=== PATIENT | female | born 1935 | race Caucasian/White ===

== ENCOUNTER 2018-04-09 12:19 | Outpatient (CLI) | payer MEDICARE, BC | END 2018-04-09 12:20 | disposition EMS.NT | LOC: EMS 12:19 | PROVIDERS: ATTEND Surgery | DX: R53.1 Weakness (principal); R42 Dizziness and giddiness ==

== ENCOUNTER 2018-09-28 14:31 | Outpatient (CLI) | payer MEDICARE, OTHER ==
[2018-09-28 15:10] LABS: BILIRUBIN,URINE NEGATIVE (NEGATIVE); GLUCOSE, URINE (UA) NEGATIVE (NEGATIVE); KETONES,URINE (UA) NEGATIVE (NEGATIVE); LEUKOCYTE ESTERASE, URINE LARGE (NEGATIVE); NITRITE,URINE POSITIVE (NEGATIVE); OCCULT BLOOD,URINE SMALL (NEGATIVE); PROTEIN,URINE 30 mg/dL (NEGATIVE); UROBILINOGEN,URINE 0.2 (NORMAL) E.U./dL (NORMAL)
[2018-09-28 15:17] LABS: CLARITY,URINE HAZY (CLEAR)
[2018-09-28 15:20] LABS: BACTERIA,URINE Many /HPF (None Seen); RBC,URINE 0-5 /HPF (0-5); SQUAMOUS EPITHELIAL CELL,UR RARE Squamous (<= Few); WBC CLUMPS,URINE PRESENT
== END 2018-09-28 14:32 | disposition home or self-care (01) ==
LOC: LAB 14:31
PROVIDERS: ATTEND Internal Medicine Cardiovascular Disease
DX: N39.0 Urinary tract infection, site not specified (principal)
CPT/HCPCS: 81001; 81003; 87077; 87086; 87181

== ENCOUNTER 2019-09-29 11:11 | Emergency (ER) | payer MEDICARE, OTHER ==
--- NOTE | 2019-09-29 12:41 | XRAY Report ---
Reason: cough Procedure Date: 09/29/2019 Accession Number: [id number] / [id number] Procedure: XR - Chest 1 View X-Ray CPT Code: 60161 Final Report FULL RESULT: EXAM: CHEST RADIOGRAPHY EXAM DATE: 09/29/2019 12:27 PM. CLINICAL HISTORY: Cough. Stomach pain. COMPARISON: None. TECHNIQUE: 1 view. FINDINGS: Lungs/Pleura: Right lower lobe airspace opacity. Small right pleural effusion versus pleural thickening. No vascular congestion. Mediastinum: Heart is enlarged. Aorta is tortuous. Aortic atherosclerosis. Aortic valve prosthesis noted. Other: Degenerative changes. Thoracic scoliosis. IMPRESSION: 1. Right basilar opacity most likely due to aspiration/pneumonia. 2. Small right pleural effusion versus pleural thickening. RADIA
[2019-09-29] MEDS ORDERED: cefTRIAXone 1 GM in SODIUM CHLORIDE 0.9% MINIBAG 100 ML IV STA (13:11)
--- NOTE | 2019-09-29 14:10 | ED Physician Documentation ---
PD HPI URI - Stated complaint Stated Complaint: COUGH - Chief complaint Chief Complaint: Resp - History obtained from History obtained from: Patient - History of Present Illness Timing - onset: How many days ago (5) Timing duration: Days (5) Timing details: Gradual onset, Still present Associated symptoms: Dry cough, Dyspnea. No: Fever, Chills, Sweats, Ear pain, Nasal congestion, Rhinorrhea Improves by: Rest Worsened by: Activity Similar symptoms before: Diagnosis (pneumonia) Recently seen: Not recently seen - Additional information Additional information: 84-year-old female developed some nausea and vomiting about 5 days ago she subsequently has developed a cough and congestion and she is now concerned about coronavirus and is coming to get the coronavirus test. She does not think she has any specific exposure. She has had pneumonia once previously while she was in the hospital at [facility] in [place]. She also states that she has recently had a Shaun procedure done and she is very happy with the results she is getting along quite well and does not feel ill now. Review of Systems Constitutional: reports: Myalgias. denies: Fever, Chills Eyes: denies: Decreased vision Ears: denies: Ear pain Nose: denies: Rhinorrhea / runny nose, Congestion Throat: denies: Sore throat Cardiac: denies: Chest pain / pressure, Palpitations Respiratory: reports: Dyspnea, Cough GI: reports: Nausea, Vomiting, Diarrhea. denies: Abdominal Pain : denies: Dysuria, Frequency Skin: denies: Rash Musculoskeletal: denies: Neck pain, Back pain, Extremity pain Neurologic: denies: Generalized weakness, Focal weakness, Numbness PD PAST MEDICAL HISTORY - Past Medical History Past Medical History: Yes Cardiovascular: Other Neuro: None GI: None HEENT: None Other Past Medical History: on blood thinner - Past Surgical History Past Surgical History: Yes Cardiovascular: Valve replacement - Present Medications Home Medications: Ambulatory Orders Medication Instructions Recorded Confirmed Apixaban [Eliquis] 5 mg ORAL BID 09/29/19 09/29/19 Aspirin Chewable [[place] 81 mg PO DAILY 09/29/19 09/29/19 Aspirin] Azithromycin [Zithromax] 250 mg PO DAILY #6 tablet 09/29/19 Cholecalciferol (Vitamin D3) 10 mcg PO DAILY 09/29/19 09/29/19 [Vitamin D3] Levothyroxine [Synthroid] 100 mcg PO QDAC 09/29/19 09/29/19 Metoprolol Succinate [Toprol Xl] 25 mg PO DAILY 09/29/19 09/29/19 Omeprazole 20 mg PO DAILY 09/29/19 09/29/19 Prednisone [Alexis] 5 mg PO BID PRN 09/29/19 09/29/19 - Allergies Allergies/Adverse Reactions: Allergies Allergy/AdvReac Type Severity Reaction Status Date / Time Penicillins Allergy Anaphylaxis Verified 09/29/19 11:22 - Social History Does the pt smoke?: No Smoking Status: Never smoker - Immunizations Immunizations are current?: Yes PD ED PE NORMAL - Vitals Vital signs reviewed: Yes (hypertensive mild ) - General General: Alert and oriented X 3, No acute distress, Well developed/nourished - HEENT HEENT: Atraumatic, PERRL, EOMI, Ears normal, Moist mucous membranes - Neck Neck: Supple, no meningeal sign, No bony TTP - Cardiac Cardiac: RRR, No murmur - Respiratory Respiratory: No respiratory distress, Other (rhonchi in the right base) - Abdomen Abdomen: Soft, Non tender - Back Back: No CVA TTP, No spinal TTP - Derm Derm: Normal color, Warm and dry, No rash - Extremities Extremities: No deformity, No edema - Neuro Neuro: Alert and oriented X 3, stock mover 2-12 intact, No motor deficit, No sensory deficit, Normal speech Eye Opening: Spontaneous Motor: Obeys Commands Verbal: Oriented GCS Score: 15 - Psych Psych: Normal mood, Normal affect Results - Vitals Vitals: Vital Signs - 24 hr 09/29/19 09/29/19 11:15 13:52 Temperature 36.7 C Heart Rate 75 78 Respiratory 18 Rate Blood Pressure 135/57 H O2 Saturation 98 97 Oxygen O2 Source Room air - Rads (name of study) chest Radiology: Prelim report reviewed (Impression: Right basilar opacity most likely due to aspiration/pneumonia. 2. Small right pleural effusion versus pleural thickening.), EMP read indepedently, See rad report PD MEDICAL DECISION MAKING - ED course Complexity details: reviewed old records (review of record from [facility] in 2017 indicates she was treated successfully with zithromax for a pneumonia while in the hospital. ), reviewed results, re-evaluated patient, considered differential, d/w patient ED course: 84-year-old female who is had a TAVR procedure is doing quite well with this and she arrives to the emergency department with a chief complaint of a hacking cough that started recently and she is concerned and wants to get a coronavirus test. She is afebrile she is not dyspneic and she has a normal oxygen saturation. Her chest x-ray and physical exam are concerning for a right lower lobe pneumonia.She is administered Rocephin 1 g intravenously and we will place her on some azithromycin. She has had successful treatment for pneumonia with this previously. She does not appear ill or in need of hospital admission. Departure - Departure Disposition: 01 Home, Self Care Clinical Impression: Pneumonia Qualifiers: Pneumonia type: due to unspecified organism Laterality: right Lung location: lower lobe of lung Qualified Code(s): J18.9 - Pneumonia, unspecified organism Condition: Stable Instructions: ED Pneumonia Adult Follow-Up: ANNMARIE VERDUGO MD [Primary Care Provider] - Prescriptions: Azithromycin [Zithromax] 250 mg PO DAILY #6 tablet
[2019-09-29 14:38] VITALS: BP 137/67
== END 2019-09-29 14:36 | disposition home or self-care (01) ==
LOC: ED 11:11
DX: J18.9 Pneumonia, unspecified organism (principal); Z95.2 Presence of prosthetic heart valve; Z20.828 Contact with and (suspected) exposure to other viral communicable diseases
CPT/HCPCS: 71045; 96365; 99284; U0004; 81599

== ENCOUNTER 2020-01-17 05:03 | Outpatient (CLI) | payer MEDICARE, OTHER | END 2020-01-17 05:04 | disposition EMS.NT | LOC: EMS 05:03 | PROVIDERS: ATTEND Surgery | DX: R11.2 Nausea with vomiting, unspecified (principal); R07.89 Other chest pain ==

== ENCOUNTER 2020-06-14 16:58 | Outpatient (CLI) | payer MEDICARE, OTHER ==
--- OUTSIDE RECORDS SUMMARY | 2020-06-18 04:51 | EXTERNAL MEDICAL SUMMARY RPT | Continuity of Care Document ---
:1935 Demographics Phone Unavailable Preferred Language Unknown Marital Status Unknown Pentecostal Affiliation Unknown Race Unknown Ethnic Group Unknown Author Organization [facility] Address [address] [phone] Phone Care Team Providers Name Role Phone VERDUGO Unavailable Unavailable Problems date description facility 2018-06-20 15:33 ENCNTR FOR SURGICAL AFTCR [facility] FOLLOWING SURGERY ON THE CIRC SYS 2018-06-20 15:33 PRESENCE OF PROSTHETIC HEART VALVE [facility] 2018-09-28 14:31 URINARY TRACT INFECTION, SITE NOT formerly [facility] SPECIFIED 2019-09-29 11:11 PNEUMONIA, UNSPECIFIED ORGANISM [facility] 2019-09-29 11:11 COUGH [facility] 2019-09-29 11:11 CONTACT W AND EXPOSURE TO OTH Located within [facility] VIRAL COMMUNICABLE DISEASES 2019-09-29 11:11 PRESENCE OF PROSTHETIC HEART VALVE [facility] Allergies date description facility [facility] Social History date description facility [id number]
== END 2020-06-14 16:59 | disposition short-term general hospital (02) ==
LOC: EMS 16:58
PROVIDERS: ATTEND Surgery
DX: R10.31 Right lower quadrant pain (principal)
CPT/HCPCS: A0425; A0427

== ENCOUNTER 2020-08-11 11:30 | Outpatient (CLI) | payer MEDICARE, OTHER ==
[2020-08-11 19:33] LABS: BILIRUBIN,URINE NEGATIVE (NEGATIVE); GLUCOSE, URINE (UA) NEGATIVE (NEGATIVE); KETONES,URINE (UA) NEGATIVE (NEGATIVE); LEUKOCYTE ESTERASE, URINE MODERATE (NEGATIVE); NITRITE,URINE NEGATIVE (NEGATIVE); OCCULT BLOOD,URINE NEGATIVE (NEGATIVE); PROTEIN,URINE NEGATIVE (NEGATIVE); UROBILINOGEN,URINE 0.2 (NORMAL) E.U./dL (NORMAL)
[2020-08-11 20:05] LABS: BACTERIA,URINE Few /HPF (None Seen); CASTS, URINE 3-5 Hyaline Casts /LPF; CLARITY,URINE HAZY (CLEAR); RBC,URINE 0-5 /HPF (0-5); SQUAMOUS EPITHELIAL CELL,UR FEW Squamous (<= Few); WBC,URINE >25 /HPF (0-5)
== END 2020-08-11 23:59 | disposition home or self-care (01) ==
LOC: LAB.R 11:30
PROVIDERS: ATTEND Family Medicine Sports Medicine
DX: N39.0 Urinary tract infection, site not specified (principal)
CPT/HCPCS: 81001; 87086

== ENCOUNTER 2021-02-08 09:13 | Outpatient (CLI) | payer MEDICARE, OTHER | END 2021-02-08 09:14 | disposition EMS.NT | LOC: EMS 09:13 | DX: R06.00 Dyspnea, unspecified (principal); J02.9 Acute pharyngitis, unspecified ==